=== PATIENT | male | born 1965 | race Hispanic/Latino ===

== ENCOUNTER 2019-09-28 10:28 | Outpatient (CLI) | payer BC ==
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
== END 2019-09-28 10:29 | disposition home or self-care (01) ==
LOC: BICRAD 10:28
PROVIDERS: ATTEND Family Medicine
DX: M25.561 Pain in right knee (principal); M25.562 Pain in left knee
CPT/HCPCS: 36415; 80053; 80061; 81001; 85025; 86780; 87389; 87491; 87591

== ENCOUNTER 2020-12-31 15:38 | Outpatient (CLI) | payer BC | END 2020-12-31 15:39 | disposition home or self-care (01) | LOC: BICULT 15:38 | PROVIDERS: ATTEND Family Medicine | DX: R31.9 Hematuria, unspecified (principal) | CPT/HCPCS: 76770 ==

== ENCOUNTER 2021-06-28 14:02 | Emergency (ER) | payer BC ==
[2021-06-28] MEDS ORDERED: Cyclobenzaprine 10 MG TAB ONE (15:41)
[2021-06-28] MEDS ORDERED: Ketorolac Tromethamine 30 MG/ML VIAL ONE (15:41)
== END 2021-06-28 15:50 | disposition home or self-care (01) ==
LOC: ERS 14:02
DX: M62.830 Muscle spasm of back (principal); M54.50 Low back pain, unspecified; E78.5 Hyperlipidemia, unspecified
CPT/HCPCS: 96372; 99283; J1885

== ENCOUNTER 2022-03-02 14:39 | Outpatient (CLI) | payer BC | END 2022-03-02 14:40 | disposition home or self-care (01) | LOC: ULT 14:39 | PROVIDERS: ATTEND Urology | DX: N28.1 Cyst of kidney, acquired (principal); N32.89 Other specified disorders of bladder | CPT/HCPCS: 76770 ==

== ENCOUNTER 2025-07-04 12:32 | Emergency (ER) | payer BC | END 2025-07-04 14:30 | disposition home or self-care (01) | LOC: ERS 12:32 | DX: S16.1XXA Strain of muscle, fascia and tendon at neck level, initial encounter (principal); M54.50 Low back pain, unspecified; V43.52XA Car driver injured in collision with other type car in traffic accident, initial encounter | CPT/HCPCS: 72125; 72131; 96372 ==